=== PATIENT | female | born 1945 | race Hispanic/Latino ===

== ENCOUNTER 2021-01-18 10:50 | Day surgery (SDC) | payer OTHER ==
[2021-01-11 12:20] LABS: BASOPHILS % (AUTO) 0.8 % (0.0-5.0); EOSINOPHILS % (AUTO) 4.3 % (0.0-8.0); HEMATOCRIT 39.7 % (36-48); LYMPHOCYTES % (AUTO) 20.1 % (21.0-51.0); MEAN CORPUSCULAR HEMOGLOBIN 29.4 pg (27.0-33.0); MEAN CORPUSCULAR HGB CONC 32.2 g/dL (32.0-36.0); MEAN CORPUSCULAR VOLUME 91.1 fL (79-99); MONOCYTES % (AUTO) 7.4 % (3.0-13.0); PLATELET COUNT (AUTO) 285 K/uL (130-400); RED BLOOD CELL COUNT(AUTO) 4.36 MIL/uL (4.00-5.50); WHITE BLOOD COUNT (AUTO) 4.9 K/uL (4.8-10.8)
[2021-01-11 12:34] LABS: ALANINE AMINOTRANSFERASE 29 U/L (12-78); ALBUMIN 3.5 g/dL (3.5-5.0); ASPARTATE AMINOTRANSFERASE 30 U/L (10-37); BILIRUBIN,DIRECT < 0.1 mg/dL (0.0-0.3); BILIRUBIN,TOTAL 0.3 mg/dL (0.2-1.0); TOTAL PROTEIN, SERUM 6.7 g/dL (6.0-8.3)
[2021-01-11 12:35] LABS: PROTHROMBIN TIME 10.9 SEC (9.6-11.6)
[2021-01-11 12:36] LABS: PARTIAL THROMBOPLASTIN TIME 25.2 SEC (26.3-35.5)
[2021-01-17 13:15] VITALS: BP 159/74
[~2021-01-18] VITALS: Ht 149.9 cm; Wt 62.0 kg
[2021-01-18] VITALS (17 sets, daily range): BP systolic 143–177; BP diastolic 57–75
[~2021-01-18 10:50] MED LIST: AMLO-257 PO; ASPI-1197 PO; ATOR10TA69 PO; FOLI0.8T3 PO; HYDR200T4 PO; LISI40TA9 PO; METO-391 PO; OMEP40CA21 PO; PRED5TAB PO
[2021-01-18] MEDS ORDERED: LACTATED RINGERS 1000ML 1,000 ML IV ONE ×2 (11:35→11:43)
[2021-01-18 11:38] LABS: CREATININE 0.7 mg/dL (0.5-1.5); POTASSIUM 3.7 mmol/L (3.5-5.1)
[2021-01-18] MEDS ORDERED: CEFAZOLIN SODIUM 1 GM VIAL ONE (11:43)
[2021-01-18] MEDS ORDERED: LEVOFLOXACIN 500 MG/D5W 100 ML 100 ML ONE (12:19)
[2021-01-18] MEDS ORDERED: LIDOCAINE PF 100MG/5ML (2%) SYRINGE 5ML ONE (12:38)
[2021-01-18] MEDS ORDERED: ROCURONIUM 10MG/1ML SYR 10 MG/ML ML ONE (12:38)
[2021-01-18] MEDS ORDERED: NEOSTIGMINE 5MG/5ML SYR IV ONE (12:38)
[2021-01-18] MEDS ORDERED: SUCCINYLCHOLINE CHLORIDE 20 MG/ML 10 ML VIAL ONE (12:38)
[2021-01-18] MEDS ORDERED: GLYCOPYRROLATE 1 MG/5 ML SYRINGE ONE (12:38)
[2021-01-18] MEDS ORDERED: PROPOFOL 10 MG/ML 20ML VIAL IV ONE (12:38)
[2021-01-18] MEDS ORDERED: BUPIVACAINE/PF 0.5% 30ML VIAL ONE (12:45)
[2021-01-18] MEDS ORDERED: KETOROLAC 30MG VIAL (30MG/ML) ONE (13:00)
[2021-01-18] MEDS ORDERED: FENTANYL CITRATE PF 50 MCG/1 ML 2ML VIAL ONE (13:01)
[2021-01-18] MEDS ORDERED: ONDANSETRON 4MG INJ ONE (13:17)
[2021-01-18] MEDS ORDERED: ACET1TAB25 PO (13:29)
== END 2021-01-18 15:15 | disposition home or self-care (01) ==
LOC: DAH 10:50
PROVIDERS: ATTEND Specialist
DX: K80.10 Calculus of gallbladder with chronic cholecystitis without obstruction (principal); Z20.822 Contact with and (suspected) exposure to COVID-19; I10 Essential (primary) hypertension; E78.5 Hyperlipidemia, unspecified; K21.9 Gastro-esophageal reflux disease without esophagitis; M19.90 Unspecified osteoarthritis, unspecified site; E78.00 Pure hypercholesterolemia, unspecified; Z88.0 Allergy status to penicillin; Z98.891 History of uterine scar from previous surgery; Z98.890 Other specified postprocedural states; Z79.01 Long term (current) use of anticoagulants
CPT/HCPCS: 36415 ×2; 47562; 71045; 80048; 80076; 84703; 85025; 85610; 85730; 88304; 93005; A4215 ×2; A4221; A4222; A4223; A4510; A4600 ×2; A4649 ×3; A4663; A6206; A6260; C1769 ×4; C9803; J0330; J1885; J1956; J2001; J2405; J2704; J2710; J3010; J3490 ×2; J7030; J7120 ×2; U0003; J0690

== ENCOUNTER → 2022-08-28 | Outpatient (CLI) | payer OTHER ==
[~2022-08-28] MED LIST changes: +ACET-2079 PO
== END | disposition home or self-care (01) ==
LOC: RAH 14:49
PROVIDERS: ATTEND Internal Medicine
DX: R22.31 Localized swelling, mass and lump, right upper limb (principal)
CPT/HCPCS: 76882

== ENCOUNTER → 2022-12-17 | Outpatient (CLI) | payer OTHER | END | disposition home or self-care (01) | LOC: RAH 12:17 | PROVIDERS: ATTEND Internal Medicine | DX: J44.9 Chronic obstructive pulmonary disease, unspecified (principal); I08.0 Rheumatic disorders of both mitral and aortic valves; I11.9 Hypertensive heart disease without heart failure; M34.9 Systemic sclerosis, unspecified; K31.89 Other diseases of stomach and duodenum; M47.815 Spondylosis without myelopathy or radiculopathy, thoracolumbar region; M19.90 Unspecified osteoarthritis, unspecified site; Z90.49 Acquired absence of other specified parts of digestive tract | CPT/HCPCS: 71250; 93306 ==